=== PATIENT | female | born 1980 | race Caucasian/White ===

== ENCOUNTER 2018-05-18 08:49 | Emergency (ER) | payer OTHER, SELFPAY ==
[2018-05-18 08:50] VITALS: BP 143/73; PULSE 70; RESP 18; TEMP 36.6; O2SAT 99; BMI 28.1
--- NOTE | 2018-05-18 09:01 | CT_ITS ---
STUDY: CT ABDOMEN AND PELVIS WITHOUT CONTRAST REASON FOR EXAM: Female, 38 years old. Right flank pain. Nausea and vomiting. RADIATION DOSAGE (If Supplied By Facility): CTDIvol = ( 9.95 ) mGy, DLP = ( 514.74 ) mGycm TECHNIQUE: Transaxial images were obtained from the dome of the diaphragm to the symphysis pubis without oral contrast, and without intravenous contrast. Sagittal and coronal images were reconstructed. Individualized dose optimization techniques were used for this CT. COMPARISON: Comparison is made with prior study dated April 15, 2015. FINDINGS: The visualized lung bases are unremarkable. The visualized portions of the heart are within normal limits. Normal liver. The gallbladder is slightly distended. Correlation with ultrasound is recommended. Normal spleen. Normal pancreas. Normal bilateral adrenal glands. Normal right kidney. Normal left kidney. Normal visualized stomach. Normal small intestine. Normal colon. The appendix is visualized and appears normal. Normal abdominal aorta. Normal inferior vena cava. Normal retroperitoneum. Normal urinary bladder. There is a 2.3 cm x 2.6 cm left ovarian cyst. Small follicles are seen in the right ovary. Normal abdominal wall. Normal osseous structures. CT/Abdomen/Pelvis without Cont IMPRESSION: Mildly distended gallbladder. Possible sludge within the gallbladder lumen. Electronically Signed: Reji Johnston MD at 9:45 EST Tel [phone], Service support ,
--- NOTE | 2018-05-18 09:06 | ED.DCSUM_ITS ---
- ER Visit Summary Date of Service: 05/18/18 Chief Complaint: Right flank pain History of Present Illness: The patient is a 38 F prior kidney stone x1 that she passed on her own. Has had prior back surgery of L5-S1. Has had a tubal ligation. Patient states that she has right flank pain approximately 1 week. Initially was intermittent notes more constant. Associated with nausea and vomiting. No fever. No dysuria. On Tuesday Cipro in case this is a UTI. She was not having UTI symptoms other than no urgency or frequency. The Cipro has been made no difference in her pain and the pain is actually gotten worse. She denies any falls or trauma. No fever. No radiation of the pain. Physical Examination: Well-appearing female. Vital signs are stable afebrile. She does not look septic or toxic. H EENT exam unremarkable. Neck nontender no lymphadenopathy. Lungs clear to auscultation bilaterally. Heart regular rhythm no murmur. Abdomen soft and nontender. Normal bowel sounds no peritoneal signs. Extremities patient is moving all 4 neurovascular intact. Calves are nontender without edema. She has normal medial thigh sensation. No signs of cauda equina. Back exam the back itself is unremarkable. The spine is nontender. She has no reproducible CVA tenderness. The right posterior lateral kidney areas where she is having pain but it is not reproducible. There is no redness or warmth. There is no signs of bruising or trauma. Neurologic exam is normal. No motor deficits. Test Results: BMP shows unremarkable. UA shows no signs of infection or blood nor nitrites. CT flank study without contrast shows no acute abnormality. Gallbladder sludge and distended. Emergency Department Course and Treatment: Patient treated with IV Zofran for nausea. She did not want anything for pain. On repeat exam the patient is doing well at 1110. She denies discussed all test results. She recently has had an ultrasound of her gallbladder which was unremarkable. She is having no food intolerances or abdominal pain. No right upper quadrant pain with eating. Her exam otherwise is unchanged. She is comfortable being discharged home. Treatment Plan: Zofran for nausea. Follow-up with her primary care physician. Disposition: Discharge Impression: Acute right flank pain of uncertain etiology. This note was generated with [employer] dictation software. It may contain incorrect words, spelling, and punctuation that were not noted in review of the chart prior to signing ED Disposition - Plan for ED Patient: Chief Complaint: Flank Pain Referrals: Ranjeet Arriaga [Primary Care Provider] -
[2018-05-18] MEDS: Ondansetron 4 MG/2 ML Vial IV (09:14)
[2018-05-18 09:21] LABS: Red Blood Cells-Urine 0 SEEN /hpf (0-5)
[2018-05-18 09:29] LABS: Color, Urine Yellow (Yellow); Glucose, Dipstick Normal (Normal); Ketone-Dipstick Negative (Negative); Leukocyte Esterase-Dipstick Negative /ul (Negative); Nitrite-Dipstick Negative (Negative); Occult Blood-Urine Negative /ul (Negative); Protein-Dipstick Negative (Negative); Urine Bilirubin Dipstick Negative (Negative); Urine Clarity Clear (Clear); Urine Urobilinogen Normal (Normal)
[2018-05-18 09:34] LABS: Anion Gap 6 (5-15); BUN 12 mg/dL (7-18); BUN/Creat Ratio 14.3 RATIO (10-20); Calcium,Total 8.6 mg/dL (8.5-10.1); Chloride 111 mmol/L (98-107); Creatinine, Serum 0.84 mg/dL (0.55-1.02); EST Glomerular Filtration Rate 80 mL/min (>60); Est Glom Filt Rate - Afr Amer 97 mL/min (>60); Estimated Creatinine Clearance 86.57 ml/min; Glucose 91 mg/dL (74-106); Potassium 3.6 mmol/L (3.5-5.1); Sodium Level 143 mmol/L (136-145)
[2018-05-18 09:37] LABS: Squamous Epithelial Cells - UA 10-25 SEEN /hpf (5-10); White Blood Cells 0-5 SEEN /hpf (0-5)
[2018-05-18 09:38] LABS: Bacteria 1+ /hpf (None Seen); Mucous, Urine 1+ /hpf (<or=2+)
--- NOTE | 2018-05-18 11:18 | ED.DEP ---
ED Disposition - Plan for ED Patient: Disposition: Home or Assisted Living Chief Complaint: Flank Pain Instructions: ED Flank Pain Uncertain Cause Prescriptions: Ondansetron [Zofran Odt] 4 mg PO Q8H PRN PRN #10 tab PRN Reason: Nausea Referrals: Ranjeet Arriaga [Primary Care Provider] - 3-5 Days if not improving Additional Instructions: Zofran as needed for nausea. Follow-up your primary care physician if not improving. Return if worse. Other than gallbladder sludge on your CAT scan no other acute abnormalities. No kidney stone seen.
[2018-05-18 11:33] VITALS: BP 122/76; PULSE 59; RESP 16; O2SAT 98
== END 2018-05-18 11:34 | disposition home or self-care (01) ==
PROVIDERS: Emergency Provider Emergency Medicine
DX: R10.9 Unspecified abdominal pain (principal); R11.2 Nausea with vomiting, unspecified; Z79.899 Other long term (current) drug therapy; Z87.442 Personal history of urinary calculi; Z98.51 Tubal ligation status
CPT/HCPCS: 74176; 80048; 81001; 96374; 99283; A4216; J2405